=== PATIENT | male | born 1950 | race Asian ===

== ENCOUNTER 2023-12-27 16:46 | Inpatient (IN) | payer OTHER ==
[~2023-12-27] VITALS: Ht 165.1 cm; Wt 67.6 kg
[2023-12-27 17:32] LABS: BASOPHILS % (AUTO) 0.4 % (0.0-2.0); EOSINOPHILS # (AUTO) 0.4 K/uL (0.0-0.7); EOSINOPHILS % (AUTO) 5.3 % (0.0-6.0); HEMATOCRIT 40 % (39-51); HEMOGLOBIN 13.5 g/dL (13.5-17.5); LYMPHOCYTES # (AUTO) 1.7 K/uL (0.8-4.8); LYMPHOCYTES % (AUTO) 25.2 % (20.0-44.0); MEAN CORPUSCULAR HEMOGLOBIN 32 PG (26.0-33.0); MEAN CORPUSCULAR HGB CONC 34 g/dl (31.0-36.0); MEAN CORPUSCULAR VOLUME 94 fL (80-96); MONOCYTES # (AUTO) 0.6 K/uL (0.1-1.30); MONOCYTES % (AUTO) 9.3 % (2.0-12.0); NEUTROPHILS % (AUTO) 59.8 % (43.0-81.0); PLATELET COUNT (AUTO) 253 K/uL (150-450); RED BLOOD CELL COUNT(AUTO) 4.27 MIL/uL (4.5-6.0); RED CELL DISTRIBUTION WIDTH 15.9 % (11.5-15.0); WHITE BLOOD COUNT (AUTO) 6.7 K/uL (4.3-11.0)
[2023-12-27 17:33] LABS: APPEARANCE,URINE CLEAR (CLEAR); BILIRUBIN,URINE NEGATIVE (NEGATIVE); BLOOD, URINE NEGATIVE Ery/uL (NEGATIVE); COLOR,URINE YELLOW (YELLOW); KETONES,URINE NEGATIVE (NEGATIVE); LEUKOCYTE ESTERASE ,URINE NEGATIVE (NEGATIVE); NITRITE, URINE NEGATIVE (NEGATIVE); PROTEIN,URINE NEGATIVE (NEGATIVE); UGLUCOSE NEGATIVE (NEGATIVE); UROBILINOGEN,URINE 0.2 EU/dL (0.2)
[2023-12-27 17:34] LABS: CALCIUM, SERUM 8.7 mg/dL (8.5-10.1); CARBON DIOXIDE 27 mmol/L (21-32); CHLORIDE 105 mmol/L (98-107); CREATININE 1.5 mg/dL (0.6-1.3); GLUCOSE 84 mg/dL (74-106); POTASSIUM 3.7 mmol/L (3.5-5.1); SODIUM SERUM 140 mmol/L (136-145); UREA NITROGEN, BLOOD 24 mg/dL (7-18)
[2023-12-27 17:41] LABS: ALANINE AMINOTRANSFERASE 26 U/L (12-78); ALBUMIN 3.1 g/dL (3.4-5.0); ALKALINE PHOSPHATASE 69 U/L (46-116); ASPARTATE AMINOTRANSFERASE 21 U/L (15-37); BILIRUBIN,DIRECT 0.1 mg/dL (0.0-0.2); BILIRUBIN,TOTAL 0.4 mg/dL (0.2-1.0); TOTAL PROTEIN, SERUM 7.1 g/dL (6.4-8.2)
[2023-12-27] MEDS ORDERED: NA P133E RC (17:53)
[2023-12-27] MEDS ORDERED: ESCI5TAB PO (17:53)
[2023-12-27] MEDS ORDERED: BISA10SU61 RC (17:53)
[2023-12-27] MEDS ORDERED: MAGN400O6 PO (17:53)
[2023-12-27] MEDS ORDERED: RANO500T6 PO (17:53)
[2023-12-27] MEDS ORDERED: DIVA125C5 PO (17:53)
[2023-12-27] MEDS ORDERED: ASPI-1420 PO (17:53)
[2023-12-27] MEDS ORDERED: CLOP75TA15 PO (17:53)
[2023-12-27] MEDS ORDERED: EZET10TA16 PO (17:53)
[2023-12-27] MEDS ORDERED: CYAN500T9 PO (17:53)
[2023-12-27] MEDS ORDERED: METO25TA4 PO (17:53)
[2023-12-27] MEDS ORDERED: LEVE500T20 PO (17:53)
[2023-12-27] MEDS ORDERED: MIRT-90 PO (17:53)
[2023-12-27] MEDS ORDERED: MORPHINE SULFATE INJ 2 MG/ML DISP.SYRIN IV PRN (18:00)
[2023-12-27] MEDS ORDERED: ONDANSETRON HCL/PF 4 MG/2 ML VIAL IVP PRN (18:00)
[2023-12-27] MEDS ORDERED: hydrALAZINE HCL IV 20 MG VIAL IV PRN (18:00)
[2023-12-27] MEDS ORDERED: ACETAMINOPHEN 325 MG TABLET PO PRN (18:00)
[2023-12-27] MEDS ORDERED: Z GUARD REMEDY 4 OZ OINT TP PRN (18:00)
[2023-12-27] MEDS: IV NS 0.9% 1,000 ML BAG IV ONE (18:30)
[2023-12-27] MEDS ORDERED: IV NS 0.9% 250 ML IV ONE (19:28)
[2023-12-27] MEDS ORDERED: IOHEXOL-350 100 ML VIAL IV ONE (19:28)
[2023-12-27] MEDS ORDERED: CT SWABBABLE VALVE TRANS SET 1 EA INFUS.SET MC ONE (19:28)
[2023-12-27 21:20] VITALS: BP 136/83; TEMP 98.4; O2SAT 100
[2023-12-27 21:30] VITALS: BP 136/83; TEMP 98.4; O2SAT 99
[2023-12-27] MEDS: EZETIMIBE 10 MG TABLET PO SCH (21:47)
[2023-12-27] MEDS: MIRTAZAPINE 15 MG TABLET PO SCH (21:47)
[2023-12-27] MEDS: HEPARIN SODIUM, PORCINE 5000 UNITS/1 ML VIAL SQ SCH (21:49)
[2023-12-27] MEDS: IV NS 0.9% 1,000 ML IV PRN (21:52)
[2023-12-28 06:43] LABS: BASOPHILS % (AUTO) 0.3 % (0.0-2.0); EOSINOPHILS # (AUTO) 0.3 K/uL (0.0-0.7); EOSINOPHILS % (AUTO) 5.6 % (0.0-6.0); HEMATOCRIT 42 % (39-51); HEMOGLOBIN 13.9 g/dL (13.5-17.5); LYMPHOCYTES # (AUTO) 1.1 K/uL (0.8-4.8); LYMPHOCYTES % (AUTO) 20.7 % (20.0-44.0); MEAN CORPUSCULAR HEMOGLOBIN 32 PG (26.0-33.0); MEAN CORPUSCULAR HGB CONC 33 g/dl (31.0-36.0); MEAN CORPUSCULAR VOLUME 95 fL (80-96); MONOCYTES # (AUTO) 0.4 K/uL (0.1-1.30); MONOCYTES % (AUTO) 8.2 % (2.0-12.0); NEUTROPHILS # (AUTO) 3.5 K/uL (1.8-8.9); NEUTROPHILS % (AUTO) 65.2 % (43.0-81.0); PLATELET COUNT (AUTO) 174 K/uL (150-450); RED BLOOD CELL COUNT(AUTO) 4.41 MIL/uL (4.5-6.0); RED CELL DISTRIBUTION WIDTH 15.4 % (11.5-15.0); WHITE BLOOD COUNT (AUTO) 5.3 K/uL (4.3-11.0)
[2023-12-28 08:00] VITALS: BP 91/75; TEMP 97.2; O2SAT 99
[2023-12-28 08:23] LABS: ALANINE AMINOTRANSFERASE 26 U/L (12-78); ALKALINE PHOSPHATASE 63 U/L (46-116); ASPARTATE AMINOTRANSFERASE 18 U/L (15-37); BILIRUBIN,TOTAL 0.7 mg/dL (0.2-1.0); CALCIUM, SERUM 8.6 mg/dL (8.5-10.1); CARBON DIOXIDE 26 mmol/L (21-32); CHLORIDE 107 mmol/L (98-107); GLUCOSE 86 mg/dL (74-106); MAGNESIUM 2.1 mg/dL (1.8-2.4); PHOSPHORUS 3.4 mg/dL (2.5-4.9); SODIUM SERUM 140 mmol/L (136-145); TOTAL PROTEIN, SERUM 6.8 g/dL (6.4-8.2); UREA NITROGEN, BLOOD 16 mg/dL (7-18)
[2023-12-28] MEDS: CLOPIDOGREL BISULFATE 75 MG TABLET PO SCH (08:36)
[2023-12-28] MEDS: ASPIRIN EC 81 MG TABLET.DR PO SCH (08:36)
[2023-12-28] MEDS: ESCITALOPRAM OXALATE (10 MG) 10 MG TABLET PO SCH (08:36)
[2023-12-28] MEDS: DIVALPROEX SODIUM 125 MG CAP.SPRINK PO SCH (08:37)
[2023-12-28] MEDS: LEVETIRACETAM (250 MG) 250 MG TABLET PO SCH (08:37)
[2023-12-28] MEDS: RANOLAZINE 500 MG TAB.ER.12H PO SCH (08:37)
[2023-12-28] MEDS: METOPROLOL SUCCINATE 25 MG TAB.SR.24H PO SCH (08:39)
[2023-12-28 11:58] LABS: CHOLESTEROL 187 mg/dL (<200); HDL CHOLESTEROL 60 mg/dL (40-60); LDL 104 mg/dL (0-99); TRIGLYCERIDES 73 mg/dL (30-150)
[2023-12-28 16:00] VITALS: BP 134/76; TEMP 98.4; O2SAT 100
[2023-12-28 20:00] VITALS: BP 115/65; TEMP 98; O2SAT 98
[2023-12-28] MEDS: ATORVASTATIN 40 MG TABLET PO SCH (21:54)
[2023-12-29] MEDS ORDERED: ATOR40TA PO (07:52)
[2023-12-29 08:00] VITALS: BP 137/75; TEMP 97.5; O2SAT 97
[2023-12-29 08:01] VITALS: BP 132/96; TEMP 98.4; O2SAT 98
[2023-12-29 16:00] VITALS: BP 144/90; TEMP 98.2; O2SAT 100
[2023-12-29 20:00] VITALS: BP 128/75; TEMP 98.1; O2SAT 98
[2023-12-29 22:06] LABS: FOLIC ACID 18.4 ng/mL (>3.0)
[2023-12-30 08:00] VITALS: BP 151/89; TEMP 97.5; O2SAT 80
[2023-12-30 08:03] VITALS: BP 148/86; TEMP 97.6; O2SAT 100
[2023-12-30 08:42] VITALS: BP 151/89
== END 2023-12-30 10:00 | DRG 683 ==
LOC: ER 16:46 → MED 20:52
PROVIDERS: ADMIT Internal Medicine; ATTEND Internal Medicine
DX: N17.9 Acute kidney failure, unspecified (principal); E44.0 Moderate protein-calorie malnutrition; I69.354 Hemiplegia and hemiparesis following cerebral infarction affecting left non-dominant side; I42.9 Cardiomyopathy, unspecified; E86.1 Hypovolemia; R62.7 Adult failure to thrive; I12.9 Hypertensive chronic kidney disease with stage 1 through stage 4 chronic kidney disease, or unspecified chronic kidney disease; N18.9 Chronic kidney disease, unspecified; I25.10 Atherosclerotic heart disease of native coronary artery without angina pectoris; E78.5 Hyperlipidemia, unspecified; E88.09 Other disorders of plasma-protein metabolism, not elsewhere classified; G40.909 Epilepsy, unspecified, not intractable, without status epilepticus; R53.1 Weakness; G93.89 Other specified disorders of brain; F03.90 Unspecified dementia, unspecified severity, without behavioral disturbance, psychotic disturbance, mood disturbance, and anxiety; F41.9 Anxiety disorder, unspecified; F32.A Depression, unspecified; Z68.24 Body mass index [BMI] 24.0-24.9, adult
CPT/HCPCS: 36415; 70450-TC; 70496-TC; 70498-TC; 70551-TC; 71045-TC; 80048-TC; 80053-TC; 80061-TC; 80076-TC; 80164-TC; 82607-TC; 82962-TC; 83735-TC; 83921; 84100-TC; 84443-TC; 84484-TC; 85025-TC; 87081-TC; 97112-TC; 97116-TC; 97530-TC; A4223; G0378; J1644; J7030; J7050; Q9967